=== PATIENT | female | born 1965 | race Asian ===

== ENCOUNTER → 2016-08-05 | Outpatient (CLI) | payer OTHER | END | disposition home or self-care (01) | LOC: EMPHLTH 12:57 | PROVIDERS: ATTEND Internal Medicine | DX: Z02.1 Encounter for pre-employment examination (principal) | CPT/HCPCS: 86706; 86735; 86762; 86765; 86787 ==

== ENCOUNTER → 2017-06-22 | Outpatient (CLI) | payer OTHER ==
[~2017-06-22] MED LIST: ASCO500 PO; ASPI81 PO; CARV6 PO; GEMF600T3 PO; HYDR25TA PO; OMEG10005 PO; RIZA10TA27 PO; VALS320T16 PO
== END | disposition home or self-care (01) ==
LOC: RADPV 14:03
PROVIDERS: ATTEND Internal Medicine Critical Care Medicine
DX: J44.1 Chronic obstructive pulmonary disease with (acute) exacerbation (principal); I70.0 Atherosclerosis of aorta
CPT/HCPCS: 71046

== ENCOUNTER → 2017-07-06 | Outpatient (CLI) | payer OTHER | END | disposition home or self-care (01) | LOC: RESP 09:10 | PROVIDERS: ATTEND Internal Medicine Critical Care Medicine | DX: J44.1 Chronic obstructive pulmonary disease with (acute) exacerbation (principal) | CPT/HCPCS: 94010; 94726; 94727; 94729 ==

== ENCOUNTER → 2019-10-19 | Outpatient (CLI) | payer OTHER ==
[~2019-10-19] MED LIST changes: +ASPI-728 PO; -ASPI81 PO; -GEMF600T3 PO; +GEMF600T5 PO; +HYDR-1475 PO; -HYDR25TA PO; +LOSA50TA37 PO; -VALS320T16 PO
== END | disposition home or self-care (01) ==
LOC: RADPV 08:05
PROVIDERS: ATTEND Internal Medicine Geriatric Medicine
DX: M79.672 Pain in left foot (principal); M79.605 Pain in left leg; M77.30 Calcaneal spur, unspecified foot
CPT/HCPCS: 93926

== ENCOUNTER → 2019-12-15 | Outpatient (CLI) | payer OTHER ==
[2019-12-15 10:34] LABS: BASOPHILS % (AUTO) 1.5 % (0.0-2.0); EOSINOPHILS % (AUTO) 8.1 % (1.0-6.0); HEMATOCRIT 41.6 % (36-46); HEMOGLOBIN 13.4 g/dL (12.0-16.0); LYMPHOCYTES % (AUTO) 34.6 % (22.0-44.0); MEAN CORPUSCULAR HGB CONC 32.3 G/dL (31.0-37.0); MEAN CORPUSCULAR VOLUME 81 fL (80-100); MONOCYTES # (AUTO) 0.3 K/uL (0.1-1.0); MONOCYTES % (AUTO) 9.6 % (2.0-9.0); NEUTROPHILS # (AUTO) 1.3 K/uL (1.8-7.7); NEUTROPHILS % (AUTO) 46.2 % (40.0-70.0); PLATELET COUNT (AUTO) 323 K/uL (150-450); RED BLOOD CELL COUNT(AUTO) 5.15 MIL/uL (4.00-5.20); RED CELL DISTRIBUTION WIDTH 13.2 % (11.5-14.5)
[2019-12-15 10:46] LABS: HEMOGLOBIN A1C 5.8 % (3.8-5.6)
[2019-12-15 10:58] LABS: ALANINE AMINOTRANSFERASE 39 U/L (12-78); ALBUMIN 4.7 g/dL (3.4-5.0); ALKALINE PHOSPHATASE 75 U/L (46-116); ANION GAP 8 mmol/L (8-16); ASPARTATE AMINOTRANSFERASE 37 U/L (15-37); BILIRUBIN,TOTAL 0.5 mg/dL (0.1-1.0); CALCIUM, TOTAL 10.3 mg/dL (8.8-10.5); CARBON DIOXIDE 28 mmol/L (22-29); CHLORIDE 102 mmol/L (98-107); CHOLESTEROL 155 mg/dL (131-200); GLOMERULAR FILTR. RATE CALC > 60 mL/min (>60); GLUCOSE,RANDOM 107 mg/dL (70-110); HDL CHOLESTEROL 47 mg/dL (40-60); SODIUM SERUM 138 mmol/L (136-145); TOTAL PROTEIN, SERUM 8.5 g/dL (6.4-8.2); TRIGLYCERIDES 71 mg/dL (15-150); UREA NITROGEN, BLOOD 22 mg/dL (7-18)
[2019-12-15 10:59] LABS: CHOL/HDL RATIO 3.3 (3.9-5.7); LDL CHOL (CALC.) 94 mg/dL (0-130); THYROID STIMULATING HORMONE 1.86 uIU/mL (0.36-3.74)
[2019-12-15 11:01] LABS: FOLATE SERUM 17.2 ng/mL (5.4-)
== END | disposition home or self-care (01) ==
LOC: LABPV 07:35
PROVIDERS: ATTEND Internal Medicine Geriatric Medicine
DX: E78.1 Pure hyperglyceridemia (principal); I10 Essential (primary) hypertension; M72.2 Plantar fascial fibromatosis; G43.909 Migraine, unspecified, not intractable, without status migrainosus
CPT/HCPCS: 82306; 82607; 82746; 83036; 84443

== ENCOUNTER → 2020-02-01 | Outpatient (CLI) | payer OTHER | END | disposition home or self-care (01) | LOC: RADPV 11:24 | PROVIDERS: ATTEND Internal Medicine Geriatric Medicine | DX: M47.816 Spondylosis without myelopathy or radiculopathy, lumbar region (principal) | CPT/HCPCS: 72100 ==

== ENCOUNTER → 2020-07-19 | Outpatient (CLI) | payer OTHER ==
[~2020-07-19] MED LIST changes: +ASPI-1450 PO; -ASPI-728 PO; -GEMF600T5 PO; +GEMF600T90 PO; -HYDR-1475 PO; +HYDR25TA2 PO; -RIZA10TA27 PO; +RIZA10TA42 PO
== END | disposition home or self-care (01) ==
LOC: RADMN 08:19
PROVIDERS: ATTEND Internal Medicine
DX: R76.11 Nonspecific reaction to tuberculin skin test without active tuberculosis (principal)
CPT/HCPCS: 71045-TC

== ENCOUNTER → 2021-02-17 | Outpatient (CLI) | payer OTHER | END | disposition home or self-care (01) | LOC: RADMN 07:45 | PROVIDERS: ATTEND Internal Medicine Geriatric Medicine | DX: M19.031 Primary osteoarthritis, right wrist (principal) | CPT/HCPCS: 73080-TC; 73090-TC; 73110-TC ==

== ENCOUNTER → 2021-10-07 | Outpatient (CLI) | payer OTHER ==
[~2021-10-07] MED LIST changes: +GEMF-77 PO; -GEMF600T90 PO; +HYDR-4870 PO; -HYDR25TA2 PO; +LOSA-382 PO; -LOSA50TA37 PO
== END | disposition home or self-care (01) ==
LOC: RADPV 07:59
PROVIDERS: ATTEND Internal Medicine Geriatric Medicine
DX: M81.8 Other osteoporosis without current pathological fracture (principal); M85.88 Other specified disorders of bone density and structure, other site
CPT/HCPCS: 77080

== ENCOUNTER → 2022-02-16 | Outpatient (CLI) | payer OTHER ==
[~2022-02-16] MED LIST changes: -HYDR-4870 PO; +HYDR25TA2 PO
== END | disposition home or self-care (01) ==
LOC: RADMN 11:58
PROVIDERS: ATTEND Internal Medicine Geriatric Medicine
DX: M19.042 Primary osteoarthritis, left hand (principal); M77.8 Other enthesopathies, not elsewhere classified
CPT/HCPCS: 73130-TC

== ENCOUNTER → 2022-11-16 | Outpatient (CLI) | payer OTHER | END | disposition home or self-care (01) | LOC: RADMN 13:30 | PROVIDERS: ATTEND Internal Medicine | DX: Z02.1 Encounter for pre-employment examination (principal); R05.9 Cough, unspecified | CPT/HCPCS: 71045 ==

== ENCOUNTER → 2023-09-16 | Outpatient (CLI) | payer OTHER | END | disposition home or self-care (01) | LOC: RADMN 13:06 | PROVIDERS: ATTEND Internal Medicine Geriatric Medicine | DX: M16.12 Unilateral primary osteoarthritis, left hip (principal); M17.12 Unilateral primary osteoarthritis, left knee; M25.752 Osteophyte, left hip; M67.449 Ganglion, unspecified hand; M25.762 Osteophyte, left knee | CPT/HCPCS: 73503 ==

== ENCOUNTER → 2023-09-27 | Outpatient (CLI) | payer OTHER | END | disposition home or self-care (01) | LOC: RADPV 11:54 | PROVIDERS: ATTEND Internal Medicine Geriatric Medicine | DX: M79.605 Pain in left leg (principal) | CPT/HCPCS: 93925 ==

== ENCOUNTER 2023-12-15 05:50 | Day surgery (SDC) | payer OTHER ==
[~2023-12-15] VITALS: Ht 160 cm; Wt 81.8 kg
[~2023-12-15 05:50] MED LIST changes: +CARV12.530 PO; -CARV6 PO; +OMEG100014 PO; -OMEG10005 PO
[2023-12-15] MEDS ORDERED: SODIUM CHLORIDE 0.9% 1,000 ML ONE (06:03)
[2023-12-15] MEDS: SODIUM CHLORIDE 0.9% 1,000 ML IV ONE (06:55)
[2023-12-15] MEDS ORDERED: GLYCOPYRROLATE 0.2 MG/ML VIAL IM ONE (12:00)
[2023-12-15] MEDS ORDERED: LIDOCAINE/PF 2% 5 ML SYRINGE IVP ONE (12:00)
[2023-12-15] MEDS ORDERED: PROPOFOL 1% 20 ML VIAL IVP ONE (12:00)
[2023-12-15] MEDS ORDERED: OXYGEN THERAPY IH SCH (20:00)
== END 2023-12-15 09:47 | disposition home or self-care (01) ==
LOC: SURGERY 05:50
PROVIDERS: ATTEND Specialist
DX: Z12.11 Encounter for screening for malignant neoplasm of colon (principal); K62.1 Rectal polyp; K63.5 Polyp of colon; K57.30 Diverticulosis of large intestine without perforation or abscess without bleeding; E11.9 Type 2 diabetes mellitus without complications; I10 Essential (primary) hypertension; M19.90 Unspecified osteoarthritis, unspecified site; E78.00 Pure hypercholesterolemia, unspecified; Z98.890 Other specified postprocedural states; Z79.899 Other long term (current) drug therapy
CPT/HCPCS: 45380; 88305; J2704; J3490 ×2; J7030